=== PATIENT | female | born 1985 | race Caucasian/White ===

== ENCOUNTER 2019-05-20 10:06 | Outpatient (CLI) | payer OTHER ==
--- NOTE | 2019-05-20 10:57 | ULT ---
BILATERAL RENAL ULTRASOUND: HISTORY: Uncontrolled hypertension. COMPARISON: None. FINDINGS: Right kidney: Marked renal cortical thinning. Cortex appears to be echogenic. No hydronephrosis. Right kidney measurements: 4.3 x 8.2 x 5.0 cm. Left kidney: Marked renal cortical thinning. Cortex appears to be echogenic. No hydronephrosis. Left kidney measurements 4.9 x 9.4 x 4.4 cm. Urinary bladder: Normal mucosa. Prevoid volume is 175 mL. Post void volume is 14 mL. IMPRESSION: 1. No hydronephrosis. 2. Marked thin renal cortices with increased echogenicity. Correlate for medical renal disease. Given the overall thin nature of the cortex, percutaneous biopsy may be extremely difficult. Transcribed Date/Time: 05/20/2019 11:07 AM
== END 2019-05-20 10:07 | disposition home or self-care (01) ==
LOC: SCSULT 10:06
PROVIDERS: ATTEND Family Medicine
DX: I10 Essential (primary) hypertension (principal)
CPT/HCPCS: 76770